=== PATIENT | female | born 1990 | race Caucasian/White ===

== ENCOUNTER 2018-09-04 11:30 | Observation (INO) | payer MEDICAID, OTHER ==
[~2018-09-04] VITALS: Ht 152.4 cm; Wt 49.9 kg
== END 2018-09-04 12:20 | disposition left against medical advice (07) ==
LOC: MLD 11:30
PROVIDERS: ADMIT Obstetrics & Gynecology; ATTEND Obstetrics & Gynecology
DX: O26.899 Other specified pregnancy related conditions, unspecified trimester (principal); R10.9 Unspecified abdominal pain; Z3A.00 Weeks of gestation of pregnancy not specified
CPT/HCPCS: 81000; C1758; G0378